=== PATIENT | male | born 1990 | race Caucasian/White ===

== ENCOUNTER 2021-08-10 17:14 | Emergency (ER) | payer SELFPAY ==
--- NOTE | ~2021-08-10 | XR_ITS ---
EXAMINATION: XR chest 1V DATE: 08/10/2021 17:54 INDICATION: Stroke TECHNIQUE: PA and lateral views of the chest were obtained. COMPARISON: None FINDINGS: The lungs are clear with no focal airspace opacities, pulmonary edema, pleural effusion or pneumothor ax. The cardiomediastinal silhouette is normal. Mild upper thoracic levocurvature. IMPRESSION: 1. No acute cardiopulmonary disease. Reviewed, dictated and finalized at location A.
--- NOTE | ~2021-08-10 | CT_ITS ---
EXAMINATION: CT brain wo con DATE: 08/10/2021 18:04 INDICATION: Stroke presenting with slurred speech TECHNIQUE: Computed tomography (CT) of the head was performed without intravenous contrast. Sagittal and coronal reconstructions were performed. The mA was adjusted according to patient size. Iterative reconstruction technique was employed. The dose-length product was 605.33 mGy-cm. COMPARISON: None FINDINGS: No acute intracranial hemorrhage, acute infarction or abnormal extra axial fluid collection. Ventricl es are normal and symmetric. No mass/mass effect. The orbits, paranasal sinuses and mastoid air cells are normal. IMPRESSION: 1. Normal head CT. Reviewed, dictated and finalized at location A. IMPRESSION: 1. Normal head CT.
[2021-08-10 17:17] VITALS: BP 127/69; PULSE 70; RESP 14; TEMP 36.4; O2SAT 100
--- NOTE | 2021-08-10 17:20 | ECG_ITS ---
Measurements Intervals [place] Rate: 71 P: 76 MT: 166 QRS: -45 QRSD: 117 T: 66 QT: 356 QTc: 389 Interpretive Statements NORMAL SINUS RHYTHM WITH RIGHT BUNDLE BRANCH BLOCK ABNORMAL ECG NO PREVIOUS ECG AVAILABLE FOR COMPARISON Electronically Signed On 08-11-2021 14:10:44 CDT by Kyler Knott M.D.
[2021-08-10 17:31] LABS: Glucose Point of Care 123 mg/dl (65-105)
[2021-08-10 17:35] LABS: Basophils Percent Auto 0.6 % (0.2-1.2); Eosinophils Absolute Auto 0.1 K/mm3 (0-0.3); Eosinophils Percent Auto 1.3 % (0-4.4); Hematocrit 40.3 % (42.0-52.0); Hemoglobin 13.6 g/dL (14.0-18.0); Immature Granulocyte Absolute 0.02 K/mm3 (0.00-0.031); Immature Granulocyte Percent A 0.3 % (0-0.5); Lymphocytes Absolute Auto 2.12 K/mm3 (0.9-3.2); Lymphocytes Percent Auto 29.7 % (18.3-44.2); Mean Corpuscular HGB Conc 33.7 g/dl (32-36); Mean Corpuscular Hemoglobin 30.2 pg (26-34); Mean Corpuscular Volume 89.6 fl (80-100); Mean Platelet Volume 9.6 fl (7.4-10.4); Monocytes Absolute Auto 0.6 K/mm3 (0.1-0.6); Monocytes Percent Auto 7.9 % (2.6-8.5); Neutrophils Absolute Auto 4.3 K/mm3 (1.3-6.7); Neutrophils Percent Auto 60.2 % (45.5-73.1); Platelet Count Result 312 k/mm3 (150-375); Red Cell Distribution Width 14.1 % (11.5-14.5); White Blood Count 7.1 K/mm3 (4.5-10.0)
[2021-08-10 17:42] LABS: Alanine Aminotransferase 27 U/L (4-50); Albumin Level 4.4 g/dL (3.5-5.1); Alkaline Phosphatase 54 U/L (38-126); Anion Gap 10 mmol/L (8-16); Aspartate Amino Transferase 24 U/L (17-59); Bilirubin,Total 0.2 mg/dL (0.2-1.3); Blood Urea Nitrogen 12 mg/dL (9-20); Carbon Dioxide 28 mmol/L (22-30); Chloride 105 mmol/L (98-107); Estimated Glomerular Filt Rate > 60; Glucose 114 mg/dL (65-110); Potassium 3.5 mmol/L (3.4-5.0); Sodium 143 mmol/L (137-145)
[2021-08-10 17:43] LABS: Partial Thromboplastin Time 31.5 SECONDS (22.3-36.8); Prothrombin Time 12.8 Seconds (11.1-14.7)
[2021-08-10 17:55] LABS: Troponin I < 0.012 ng/mL (0.000-0.034)
--- NOTE | 2021-08-10 18:16 | ED.NEUROSD ---
HPI - Neuro Symptoms/Deficit General Chief Complaint: Neuro Symptoms/Deficit Stated Complaint: trouble talking, blurred vision. weak resource teacher Time Seen by Provider: 08/10/21 18:02 History of Present Illness HPI Narrative: 31-year-old male presents to the emergency room with acute onset of delayed speech, numbness and tingling to the sides of his mouth, and drooling. Patient denies head injury or trauma. Patient denies headache, visual changes, unilateral weakness. Patient denies drug and alcohol use. Patient states that he feels he is confused, having a difficult time finding his words Review of Systems Review of Systems: CONSTITUTIONAL: Denies fever, chills, or sweats. EYES: Denies visual changes, redness, or discharge. ENT: Denies rhinorrhea, congestion, sore throat, or otalgia. CARDIOVASCULAR: Denies chest pain, palpitations, or edema. RESPIRATORY: Denies cough or dyspnea. GASTROINTESTINAL: Denies abdominal pain, nausea, vomiting, or diarrhea. GENITOURINARY: Denies dysuria or hematuria. SKIN: Denies rash or itching. MUSCULOSKELETAL: Denies back pain, joint pain, or myalgia. NEUROLOGIC: Denies headache, numbness, dizziness, or weakness. PSYCHIATRIC: Denies anxiety or depression. Exam Narrative: GENERAL: Well-appearing, well-nourished, and in no acute distress. HEAD: Normocephalic, atraumatic. EYES: PERRLA and EOMI. no lateral gaze ENT: Nares clear, no rhinorrhea or epistaxis. Mucous membranes moist. Oropharynx without tonsillar hypertrophy exudate or other lesions. Bilateral TMs pearly leyva nonbulging NECK: Supple. No adenopathy or masses. No carotid bruits or JVD CHEST: Clear to auscultation. No respiratory distress. No wheezes rales or rhonchi HEART: Regular rate and rhythm. No murmur heard. Normal peripheral pulses. ABDOMEN: Soft, nontender, nondistended, normal active bowel sounds. EXTREMITIES: Normal range of motion. No edema. SKIN: Warm, dry, no rash. NEURO: No focal deficits. Alert and oriented x3. Cranial nerves II through XII are grossly intact, normal speech, no unilateral weakness PSYCH: Normal mood and affect. Course Course Emergency Course: 1930: Spoke to patient regarding test results. Patient stated sense of relief. Patient then expressed that he has been experiencing significant amount of anxiety over the past few weeks due to home life situation. Patient wishes to go home and is requesting medication for his anxiety. Discussed the risks and benefits of discontinuing further evaluation patient stated understanding Vital Signs Vital signs: Vital Signs Temperature 36.4 C 08/10/21 17:17 Pulse Rate 70 08/10/21 17:17 Respiratory Rate 14 08/10/21 17:17 Blood Pressure 127/69 08/10/21 17:17 Pulse Oximetry 100 08/10/21 17:17 Temperature 36.4 C 08/10/21 17:17 Pulse Rate 64 08/10/21 19:10 Respiratory Rate 16 08/10/21 19:10 Blood Pressure 130/81 08/10/21 19:10 Pulse Oximetry 98 08/10/21 19:10 MDM - Neuro Symptoms/Deficit MDM Narrative Medical decision making narrative: 31-year-old male presented the emergency room with complaints of numbness and tingling to both sides of his face with some increased salivation and drooling, and difficulty finding his words. Upon further interview patient states that he has been under large amount of stress and is feeling anxious. CBC and CMP are unremarkable. Urinalysis, drug screen negative. Head CT negative. Patient symptoms could be related to anxiety, will treat patient with a course of hydroxyzine and have him follow-up with his primary care physician when he returns home. Lab Data Attestation: I reviewed the patient's lab results. Result diagrams: 08/10/21 17:28 08/10/21 17:28 Labs: Lab Results 08/10/21 08/10/21 08/10/21 Range/Units 17:21 17:28 17:28 WBC 7.1 (4.5-10.0) K/mm3 RBC 4.50 L (4.6-6.20) M/mm3 Hgb 13.6 L (14.0-18.0) g/dL Hct 40.3 L (42.0-52.0) % MCV 89.6 (80-100) fl M
[2021-08-10 18:20] VITALS: BP 133/83; PULSE 66; RESP 16; O2SAT 99
[2021-08-10 19:06] LABS: Acetaminophen < 10 ug/mL (10-30); Ethanol < 10 mg/dL (<10); Salicylate < 1.0 mg/dL (2-20)
[2021-08-10 19:10] VITALS: BP 130/81; PULSE 64; RESP 16; O2SAT 98
[2021-08-10 19:11] LABS: Add Urine Microscopic? YES; Amorphous Sediment Urine Few; Appearance Urine Cloudy (Clear); Bacteria Urine Trace /hpf; Bilirubin Urine Negative (Negative); Blood Urine Negative (Negative); Color Urine Yellow (Yellow); Glucose Urine UA Negative (Negative); Ketones Urine Negative (Negative); Leukocyte Esterase Ur Negative LEU/UL (Negative); Mucus Urine Rare /lpf; Nitrate Urine Negative (Negative); Protein Urine Negative (Negative); RBC Urine 0-2 /hpf (0-2); Specific Grav Ur 1.018 (1.001-1.035); Urobilinogen Urine Negative mg/dL (<2.0); WBC Urine 0-3 /hpf
--- NOTE | 2021-08-10 19:11 | PC.NURSE ---
Assumed care of pt at this time. Pt alert and upright on stretcher, call light within reach. Pt updated on POC
[2021-08-10 19:20] LABS: Amphetamine Screen Urine Negative (Negative); Barbiturate Screen Urine Negative (Negative); Benzodiazepines Screen Urine Negative (Negative); Cannabinoid Screen Urine Negative (Negative); Cocaine Screen Urine Negative (Negative); Methadone Screen Urine Negative (Negative); Opiate Screen Urine Negative (Negative); Phencyclidine Screen Urine Negative (Negative)
[2021-08-10 19:40] LABS: D Dimer 0.46 ug/mL (<0.48)
[2021-08-10 20:52] VITALS: BP 125/78; PULSE 64; RESP 14; O2SAT 100
== END 2021-08-10 20:58 | disposition home or self-care (01) ==
PROVIDERS: Emergency Medicine; Emergency Provider Nurse Practitioner Family
DX: F41.9 Anxiety disorder, unspecified (principal); I45.10 Unspecified right bundle-branch block
CPT/HCPCS: 36415; 70450; 71045; 80053; 80307; 81001; 82948; 84484; 85025; 85380; 85610; 85730; 93005; 99284